=== PATIENT | female | born 1980 | race Caucasian/White ===

== ENCOUNTER → 2017-10-20 | Outpatient (CLI) | payer OTHER ==
[2017-10-20 13:51] LABS: HEMATOCRIT 38.7 % (35.0-46.0); MEAN CELL VOLUME 93.9 FL (80.0-100.0); MEAN CORPUSCULAR HEMOGLOBIN 31.5 PG (27.0-34.0); MEAN CORPUSCULAR HGB CONC 33.5 % (32.0-36.0); MEAN PLATELET VOLUME 9.3 FL (7.0-11.0); PLATELET COUNT 176 TH/MM3 (150-450); RED BLOOD COUNT 4.12 MIL/MM3 (4.00-5.30); RED CELL DISTRIBUTION WIDTH 13.2 % (11.6-17.2); REVIEW FLAG FINAL; WHITE BLOOD COUNT 4.6 TH/MM3 (4.0-11.0)
[2017-10-20 13:58] LABS: PROTHROMBIN TIME - PATIENT 10.3 SEC (9.8-11.6)
[2017-10-20 14:02] LABS: BILIRUBIN, URINE NEG (NEG); BLOOD, URINE NEG (NEG); GLUCOSE,URINE NEG (NEG); HYALINE CAST, URINE 1 /lpf (RARE); KETONE, URINE NEG (NEG); MUCUS URINE FEW /lpf (OCC); NITRITE,URINE NEG (NEG); PH, URINE 7.5 (5.0-8.5); SQUAMOUS EPITHELIAL CELL URINE <1 /hpf (0-5); URINE COLOR YELLOW (YELLW/STRAW); URINE LEUKOCYTE ESTERASE NEG (NEG)
[2017-10-20 14:13] LABS: COMMENT (UR) CULT NOT INDICATED; CULTURE IF INDICATED CULT NOT INDICATED
[2017-10-20 14:21] LABS: ALBUMIN 3.7 GM/DL (3.4-5.0); ANION GAP 5 MEQ/L (5-15); BICARBONATE 26.7 MEQ/L (21.0-32.0); BLOOD UREA NITROGEN 8 MG/DL (7-18); CALCIUM 8.5 MG/DL (8.5-10.1); CHLORIDE 108 MEQ/L (98-107); CREATININE 0.67 MG/DL (0.50-1.00); GLOMERULAR FILTRATION RATE 100 ML/MIN (>89); GLUCOSE,FASTING 89 MG/DL (74-99); POTASSIUM 3.5 MEQ/L (3.5-5.1); SODIUM (NA) 140 MEQ/L (136-145)
[2017-10-20 14:27] LABS: ALKALINE PHOSPHATASE 52 U/L (45-117); ALT (GPT) 22 U/L (10-53); AST (GOT) 12 U/L (15-37); TOTAL BILIRUBIN ADULT 0.6 MG/DL (0.2-1.0); TOTAL PROTEIN 7.4 GM/DL (6.4-8.2)
[2017-10-20 16:34] LABS: BHCG SCREEN QUALITATIVE LESS THAN 1 MIU/ML (0-5)
== END ==
LOC: CPRE 12:45
DX: Z01.812 Encounter for preprocedural laboratory examination (principal); N92.1 Excessive and frequent menstruation with irregular cycle; N94.6 Dysmenorrhea, unspecified; D25.9 Leiomyoma of uterus, unspecified; N94.10 Unspecified dyspareunia
CPT/HCPCS: 36415; 80053; 81001; 84703; 85027; 85610; 85730

== ENCOUNTER 2017-10-28 09:48 | Observation (INO) | payer OTHER ==
[~2017-10-28] VITALS: Ht 177.8 cm; Wt 64.4 kg
[~2017-10-28 09:48] MED LIST: ESTROGENS CONJUGATED VAG CREA 15 APPL/30 GM TUBE ONE; SYNT112T PO
[2017-10-28] MEDS ORDERED: METOPROLOL TARTRATE 25 MG TAB PO PRN (11:00)
[2017-10-28] MEDS ORDERED: ceFAZolin 1,000 MG/NS 100 ML IV SCH ×2 (11:00)
[2017-10-28] MEDS ORDERED: LACTATED RINGER'S 1000 ML IV PRN (11:00)
[2017-10-28] MEDS ORDERED: CHLORHEXIDINE GLUCONATE 2 % 1 PACK (2 CLOTHS) TOPICAL PRN (11:00)
[2017-10-28] MEDS ORDERED: SODIUM CHLORID 0.9% 500 ML IV PRN (11:00)
[2017-10-28] MEDS ORDERED: POVIDONE IODINE 5% (ANTISEPSIS KIT) 4 APPLICATIONS EACH NARE PRN (11:00)
[2017-10-28] MEDS ORDERED: LIDOCAINE HCL 1% PF 5 ML SYRINGE OTHER ONE (12:00)
[2017-10-28] MEDS ORDERED: NEOSTIGMINE 5 MG/5 ML SYRINGE IV PUSH ONE (12:00)
[2017-10-28] MEDS ORDERED: ROCURONIUM INJ 50 MG/5 ML SYRINGE IV PUSH ONE (12:00)
[2017-10-28] MEDS ORDERED: PROPOFOL 200 MG/20 ML AMP IV ONE (12:00)
[2017-10-28] MEDS ORDERED: ONDANSETRON HCL 4 MG/2 ML VIAL IV ONE (12:00)
[2017-10-28] MEDS ORDERED: LACTATED RINGER'S 1000 ML INJ 2,000 ML IV ONE (12:00)
[2017-10-28] MEDS ORDERED: DEXAMETHASONE SOD PHOS 4 MG/ML VIAL IV ONE (12:00)
[2017-10-28] MEDS ORDERED: GLYCOPYRROLATE 1 MG/5 ML SYRINGE IV PUSH ONE (12:00)
[2017-10-28] MEDS ORDERED: MIDAZOLAM HCL 2 MG/2 ML VIAL ONE (15:07)
[2017-10-28] MEDS ORDERED: ACETAMINOPHEN 1000 MG/100 ML 100 ML IV ONE (15:18)
[2017-10-28] MEDS ORDERED: DO NOT ADM ANY ANTICOAGULANT DRUGS PRN (16:18)
[2017-10-28] MEDS ORDERED: *morphine SULFATE 4 MG/ML PERIprocedure ONLY ONE ×3 (16:30→17:07)
[2017-10-28] MEDS ORDERED: KETOROLAC TROMETHAMINE 30 MG/ML (IVP) VIAL ONE (17:26)
[2017-10-28] MEDS ORDERED: *ONDANSETRON 4 MG VIAL PERIprocedural Use ONLY ONE (17:27)
[2017-10-28] MEDS ORDERED: diphenhydrAMINE HCL 25 MG CAP PO PRN (17:30)
[2017-10-28] MEDS ORDERED: oxyCODONE/ACETAMINOPHEN 5 MG/325 MG TAB PO PRN ×2 (17:30)
[2017-10-28] MEDS ORDERED: SODIUM CHLORIDE 0.9% FLUSH 10 ML FLUSH IV FLUSH PRN (17:30)
[2017-10-28] MEDS ORDERED: ZOLPIDEM TARTRATE 5 MG TAB PO PRN (17:30)
[2017-10-28] MEDS ORDERED: LACTATED RINGER'S 1000 ML INJ 1,000 ML IV SCH (17:30)
[2017-10-28] MEDS ORDERED: KETOROLAC TROMETHAMINE 30 MG/ML (IVP) VIAL IV PUSH ONE (17:30)
[2017-10-28] MEDS ORDERED: ONDANSETRON HCL 4 MG/2 ML VIAL IVP PRN (17:30)
[2017-10-28] MEDS ORDERED: MORPHINE SULFATE 2 MG/ML INJ IV PUSH PRN (18:00)
[2017-10-28 18:30] VITALS: BP 95/64; PULSE 65; RESP 16; TEMP 97.6; O2SAT 100
[2017-10-28 20:00] VITALS: BP 103/63; PULSE 92; RESP 18; TEMP 97.5; O2SAT 100
[2017-10-28] MEDS: DOCUSATE SODIUM 100 MG CAP PO SCH (20:29)
[2017-10-28] MEDS ORDERED: PROMETHAZINE INJ 25 MG/ML VIAL IM PRN (21:00)
[2017-10-28] MEDS ORDERED: SODIUM CHLORIDE 0.9% FLUSH 10 ML FLUSH IV FLUSH SCH (21:00)
[2017-10-29] VITALS: BP 98/61; PULSE 62; RESP 18; TEMP 98; O2SAT 99
[2017-10-29] MEDS: IBUPROFEN 600 MG TAB PO PRN ×2 (00:10→06:17)
[2017-10-29 04:00] VITALS: PULSE 80; RESP 16; TEMP 98.1; O2SAT 98
[2017-10-29 06:00] LABS: AUTOMATED NEUTROPHIL # 6.9 TH/MM3 (1.8-7.7); BASOPHIL % 0.1 % (0.0-2.0); HEMATOCRIT 32.6 % (35.0-46.0); HEMOGLOBIN 11.1 GM/DL (11.6-15.3); LYMPH % 11.9 % (9.0-44.0); MEAN CELL VOLUME 92.2 FL (80.0-100.0); MEAN CORPUSCULAR HEMOGLOBIN 31.5 PG (27.0-34.0); MEAN CORPUSCULAR HGB CONC 34.1 % (32.0-36.0); MEAN PLATELET VOLUME 9.2 FL (7.0-11.0); MONO % 5.7 % (0.0-8.0); MONOCYTE # 0.5 TH/MM3 (0-0.9); NEUT % 82.3 % (16.0-70.0); PLATELET COUNT 134 TH/MM3 (150-450); RED BLOOD COUNT 3.54 MIL/MM3 (4.00-5.30); RED CELL DISTRIBUTION WIDTH 13.3 % (11.6-17.2); WHITE BLOOD COUNT 8.4 TH/MM3 (4.0-11.0)
[2017-10-29] MEDS ORDERED: LEVOTHYROXINE SODIUM 112 MCG TAB PO SCH (06:00)
[2017-10-29 06:24] LABS: BICARBONATE 25.2 MEQ/L (21.0-32.0); CALCIUM 7.9 MG/DL (8.5-10.1); CREATININE 0.63 MG/DL (0.50-1.00)
[2017-10-29 06:40] VITALS: BP 112/63
--- NOTE | 2017-10-29 07:33 | MP ---
cc: Dustin NICHOLE DATE OF SURGERY 10/28/2017 PREOPERATIVE DIAGNOSIS 1. Menorrhagia 2. Dyspareunia 3. Dysmenorrhea POSTOPERATIVE DIAGNOSIS 1. Menorrhagia 2. Dyspareunia 3. Dysmenorrhea 4. Endometriosis and pelvic adhesions. PROCEDURE Vaginal biopsy x1, laparoscopic-assisted supracervical hysterectomy, suspension of ovaries and lysis of adhesions in the posterior cul-de-sac. ANESTHESIA General endotracheal intubation SURGEON Anisa Nichole MD FINDINGS Examination under anesthesia revealed in the posterior fornix of the vagina, a small 4 mm x 4 mm what looked like endometrioma and in fact I biopsied it and it was endometrioma. The uterus was normal size, shape and freely mobile. The adnexa was negative for masses. The laparoscopic exam revealed normal fallopian tubes, normal ovaries, normal uterus. The posterior cul-de-sac was completely obliterated by endometriosis. The colon was stuck firmly to the posterior cervix and lower uterine segment. The anterior cul-de-sac was clean. There were several spots of endometriosis in the posterior cul-de-sac very small and on the pelvic sidewalls which were not amenable to treatment due to they were over vital organs. The upper abdomen, GI tract and liver looked normal. COMPLICATIONS We had to change from a laparoscopic-assisted vaginal hysterectomy to the laparoscopic assisted supracervical hysterectomy because of the dense adhesions. I could not take the bowel down off of the posterior cervix. COUNTS The counts were correct. ESTIMATED BLOOD LOSS 150 cc FLUIDS Crystalloids CONDITION The patient tolerated the procedure well and went to the recovery room in good condition. PROCEDURE IN DETAIL The patient was taken to the operating room, identified by name band and verbally, given a general anesthetic, prepped and draped in the usual sterile fashion in the dorsolithotomy position for a laparoscopic-assisted vaginal hysterectomy. A time-out was taken and once we all agreed, we proceeded with an examination under anesthesia with the above findings. There was a small nodule in the apex of the vagina posterior to the cervix. Biopsy revealed a small endometrioma with chocolate cyst fluid. A Hulka clamp was placed and because of her previous endometrial ablation, this was quite difficult. However, we got it to where we could manipulate the uterus. Once this had been accomplished, the attention was turned to the umbilical area where a small subumbilical incision was made and a trocar was placed into the peritoneal cavity and a pneumoperitoneum was created with 3 liters of CO2. Inferolateral to the umbilicus, two more 5 mm trocars were placed with good results. We examined the pelvis and at this time I felt that there were extreme adhesions which were very dense and thick in the posterior cul-de-sac. At this point, I felt about canceling the surgery, versus opening her, versus giving her a bowel prep and trying. I felt it was worth a try to take some of these adhesionis down and perhaps do a laparoscopic assisted supracervical hysterectomy. Even though she did have a small fibroid on ultrasound that was not visible on direct visualization, we felt that the best course of action would be tried attempted a supracervical hysterectomy. The round ligaments were then taken down with the Harmonic scalpel and the fallopian tubes were identified and the mesosalpinx was taken down bilaterally. The utero-ovarian ligaments were then taken down and the broad ligament was taken down to the level of the internal cervical os. At this time, we could go no further and we needed to get the colon off the posterior cervix and lower uterine segment. Using scissors without any electricity, we took the posterior adhesions down to possibly about the mid level of the length of the cervix. This was done very carefully and slowly and felt like we had a pretty good lysis of adhesions in this area. We went anteriorly, created a bladder flap, put the bladder out of harm's way and then we began to take the cervix down transecting it circumferentially. At this point at the level of the internal cervical os, the uterine vessels were taken bilaterally with good results. Once we had taken the uterine vessels, the uterus blanched nicely and we continued the transection of the cervix. This took a while using the harmonic scalpel being very careful not to effect the bowel below. Once this had been completed and the specimen was removed from the cervix, the endocervix was cauterized with Kleppinger forceps and the entire cervical bed was coagulated with the Kleppinger forceps with good results. There was some bleeding at 11 o'clock on the anterior cervix and that was coagulated with the Kleppinger forceps. All other surgical sites were dry and we took the left lower abdominal trocar out and put a 10-12 mm trocar there and placed the morcellator. We morcellated the tubes and uterus. Once that had been accomplished, we washed the pelvis and abdomen with a large amount of fluids and inspected all pedicles. They were all dry. We again went into the endocervix and coagulated it again because we did not want her to have any more bleeding. Posteriorly, we had taken the bowel down quite a bit off the cervix, but not completely. Again, these adhesions were extremely thick, but I felt we had no bowel injury or ureteral injury at this time. At this point, we used some hemostatic agent over this cervical bed and placed a piece of intercede to prevent adhesions. At this point, we removed the 10-mm trocar and sewed the fascia with a 2-0 Vicryl in an interrupted fashion. The air was released through the second puncture and the laparoscope was removed under direct vision with good results. The skin was then repaired with a 4-0 Vicryl with good results. We took a look then in the vagina and that lesion we had biopsied was dry and at this point the patient was taken to the recovery room in good condition. She tolerated the procedure well. I will be keeping her overnight because of the extent of the surgery. R. MD ROSETTA Batista/ANITA /6:06 PM /7:05 AM
[2017-10-29 08:20] VITALS: BP 95/64; PULSE 69; RESP 18; TEMP 98.2; O2SAT 100
--- NOTE | 2017-10-29 08:20 | HHI.DCPOC ---
Discharge Care Plan Diagnosis: (1) Endometriosis determined by laparoscopy (2) Dyspareunia due to medical condition in male (3) Dysmenorrhea (4) Menorrhagia Report Symptoms to Your Doctor -Temperature above 100.5 degrees -Redness, of incision or excessive or foul smelling drainage -Unusual pain or calf pain -Increased vaginal bleeding -Painful or difficulty urinating -Feelings of extreme sadness or anxiety after 2 weeks Goals to Promote Your Health * To prevent worsening of your condition and complications * To maintain your health at the optimal level Directions to Meet Your Goals Take your medications as prescribed Follow your dietary instruction Follow activity as directed Ensure plenty of rest for recovery Drink fluids for hydration Keep your appointments as scheduled Take your immunizations and boosters as scheduled If your symptoms worsen call your PCP, if no PCP go to Urgent Care Center or Emergency Room Smoking is Dangerous to Your Health. Avoid second hand smoke Call the 24-hour crisis hotline for domestic abuse at Dustin Nichole MD Oct 29, 2017 08:20
[2017-10-29 08:31] VITALS: BP 95/63; PULSE 66; RESP 16; TEMP 98.3
[2017-10-29] MEDS: DOCUSATE SODIUM 100 MG CAP PO SCH (09:03)
--- NOTE | 2017-10-29 11:08 | HHI.PR ---
Subjective Remarks Doing well, pain is well controlled, eating well. Nausea is all better now. Voiding well. Objective Vital Signs Vital Signs Date Time Temp Pulse Resp B/P (MAP) Pulse Ox O2 Delivery O2 Flow Rate FiO2 10/29/17 08:31 98.3 66 16 95/63 (74) 10/29/17 08:20 98.2 69 18 95/64 (74) 100 10/29/17 06:40 112/63 (79) 10/29/17 04:00 98.1 80 16 98 10/29/17 00:00 98.0 62 18 98/61 (73) 99 10/28/17 20:00 97.5 92 18 103/63 (76) 100 10/28/17 18:30 97.6 65 16 95/64 (74) 100 10/28/17 18:15 97.5 70 16 102/64 (77) 100 Nasal Cannula 2 10/28/17 18:00 86 16 113/74 (87) 100 Nasal Cannula 2 10/28/17 17:30 70 15 109/68 (82) 100 Nasal Cannula 2 10/28/17 17:00 66 15 108/65 (79) 100 Nasal Cannula 3 10/28/17 16:45 73 17 113/66 (82) 100 Nasal Cannula 3 10/28/17 16:30 82 15 112/64 (80) 100 Nasal Cannula 3 10/28/17 16:15 97.7 95 15 118/66 (83) 100 Nasal Cannula 3 I/O 10/28/17 10/28/17 10/28/17 10/29/17 10/29/17 10/29/17 07:00 15:00 23:00 07:00 15:00 23:00 Intake Total 2375 ml Output Total 400 ml 1450 ml Balance 1975 ml -1450 ml Intake IV Total 2375 ml Output Urine Total 250 ml 1450 ml Estimated Blood Loss 150 ml # Sanitary Pads 1 Pads Result Diagram: 10/29/1752110/29/17521 Objective Remarks Chest is clear, regular rate and rhythm. Abdomen is soft and non-distended. Incision is clean and dry. Ext no CCE. A/P Assessment and Plan Post Op Day 1 High blood sugar and will follow up at postop visit Doing well Home today and return to office in two weeks. Dustin Nichole MD Oct 29, 2017 11:08
== END 2017-10-29 09:10 | disposition home or self-care (01) ==
LOC: HSDC 09:48 → H1EA 18:35
PROVIDERS: ADMIT Obstetrics & Gynecology; ATTEND Obstetrics & Gynecology
DX: N92.0 Excessive and frequent menstruation with regular cycle (principal); N94.10 Unspecified dyspareunia; N94.6 Dysmenorrhea, unspecified; N80.3 Endometriosis of pelvic peritoneum; N72 Inflammatory disease of cervix uteri; R73.9 Hyperglycemia, unspecified
CPT/HCPCS: 00840; 58552; 80048; 85025; 88305; 88307; C1765; G0378; J0131; J1100; J1885; J2250; J2270; J2405; J2550; J2710; J3010; J7120